=== PATIENT | female | born 1935 | race Caucasian/White ===

== ENCOUNTER 2017-08-18 18:32 | Inpatient (IN) | payer MEDICAID, OTHER ==
[~2017-08-18] VITALS: Ht 134.6 cm; Wt 56.7 kg
--- NOTE | 2017-08-18 18:41 | NUR ---
JUAN FROM HOME ON 5150 FOR DTS: MEDICAL CLEARANCE FOR GPS PLACEMENT
--- NOTE | 2017-08-18 18:41 | NUR ---
DR KEYES AT BEDSIDE FOR EVAL
[2017-08-18 18:52] LABS: BASOPHILS # (AUTO) 0.1 /CMM (0.0-0.2); BASOPHILS % (AUTO) 1.2 % (0.0-2.0); EOSINOPHILS # (AUTO) 0.1 /CMM (0.0-0.7); EOSINOPHILS % (AUTO) 0.9 % (0.0-6.0); HEMATOCRIT 43 % (33-45); HEMOGLOBIN 14.1 g/dL (11.5-14.8); LYMPHOCYTES # (AUTO) 1.3 /CMM (0.8-4.8); LYMPHOCYTES % (AUTO) 11.5 % (20.0-44.0); MEAN CORPUSCULAR HEMOGLOBIN 30 PG (26.0-33.0); MEAN CORPUSCULAR HGB CONC 33 g/dl (31.0-36.0); MEAN CORPUSCULAR VOLUME 92 fL (82-100); MONOCYTES # (AUTO) 0.8 /CMM (0.1-1.30); MONOCYTES % (AUTO) 7.2 % (2.0-12.0); NEUTROPHILS # (AUTO) 9.3 /CMM (1.8-8.9); NEUTROPHILS % (AUTO) 79.2 % (43.0-81.0); PLATELET COUNT (AUTO) 247 /CMM (150-450); RDW COEFFICIENT OF VARIATION 13.5 (11.5-15.0); RED BLOOD CELL COUNT(AUTO) 4.63 MIL/uL (4.0-5.2); WHITE BLOOD COUNT (AUTO) 11.6 K/uL (4.3-11.0)
[2017-08-18 19:04] LABS: CALCIUM, SERUM 9.1 mg/dL (8.5-10.1); CARBON DIOXIDE 32 mmol/L (21-32); CHLORIDE 103 mmol/L (98-107); CREATININE 0.8 mg/dL (0.6-1.3); GLUCOSE 96 mg/dL (74-106); POTASSIUM 3.6 mmol/L (3.5-5.1); SODIUM SERUM 138 mmol/L (136-145); UREA NITROGEN, BLOOD 18 mg/dL (7-18)
[2017-08-18 19:06] LABS: ALCOHOL, BLOOD < 3 mg/dL (0-0)
[2017-08-18 19:14] LABS: TROPONIN I < 0.017 ng/mL (0.00-0.056)
--- NOTE | 2017-08-18 19:49 | NUR ---
URINE SAMPLE COLLECTED SENT TO LAB
--- NOTE | 2017-08-18 19:59 | NUR ---
GPS 218
[2017-08-18 20:00] LABS: APPEARANCE,URINE Clear (CLEAR); BILIRUBIN,URINE Negative (NEGATIVE); BLOOD, URINE Trace-lysed Ery/uL (NEGATIVE); COLOR,URINE Yellow (YELLOW); KETONES,URINE Trace (NEGATIVE); LEUKOCYTE ESTERASE ,URINE Trace (NEGATIVE); NITRITE, URINE Positive (NEGATIVE); PH,URINE 6.5 (5.0-8.0); PROTEIN,URINE Negative (NEGATIVE); UGLUCOSE Negative (NEGATIVE)
--- NOTE | 2017-08-18 20:07 | NUR ---
REPORT GIVEN TO HECTOR ECHOLS GPS GRAVELY DISABLED. TRANSFER VIA STRETCHER.
[2017-08-18 20:17] LABS: BACTERIA,URINE 2+ /HPF (None Seen); SQUAMOUS EPITHELIAL CELL,UR Few /HPF (None Seen)
[2017-08-18 21:00] VITALS: BP 137/92
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
[2017-08-18] MEDS ORDERED: TEMAZEPAM 7.5 MG CAPSULE PO PRN (21:30)
[2017-08-18] MEDS ORDERED: MAGNESIUM HYDROXIDE 30 ML UDC PO PRN (21:30)
[2017-08-18] MEDS ORDERED: MAG HYDROX/AL HYDROX/SIMETH 30 ML UDC PO PRN (21:30)
[2017-08-18] MEDS ORDERED: GABA-534 PO (23:35)
[2017-08-18] MEDS ORDERED: LEVO88TA5 PO (23:35)
[2017-08-18] MEDS ORDERED: DIAZ5TAB4 PO (23:35)
[2017-08-18] MEDS ORDERED: RISP0.5T20 PO (23:35)
[2017-08-18] MEDS ORDERED: LOVA40TA2 PO (23:35)
[2017-08-18] MEDS ORDERED: OXYC-128 PO (23:35)
[2017-08-18] MEDS ORDERED: CITA20TA19 PO (23:35)
[2017-08-18] MEDS ORDERED: CARB-93 PO (23:35)
[2017-08-18] MEDS ORDERED: TRAM50TA2 PO (23:35)
[2017-08-19 06:41] LABS: CREATININE 0.7 mg/dL (0.6-1.3)
[2017-08-19 06:49] LABS: CHOLESTEROL 154 mg/dL (<200); HDL CHOLESTEROL 42 mg/dL (40-60); LDL 101 mg/dL (0-99); TRIGLYCERIDES 77 mg/dL (30-150)
[2017-08-19 08:13] VITALS: BP 109/52
[2017-08-19] MEDS: ACETAMINOPHEN 325 MG TABLET PO PRN (11:07)
--- NOTE | 2017-08-19 11:09 | NUR ---
RN NOTE:PATIENT C/O PAIN MEDICATED WITH TYLENOL 650MG .
[2017-08-19] MEDS ORDERED: Medication Not On Formulary EA (Lovastatin 1 TAB) PO SCH (11:30)
[2017-08-19] MEDS: LEVOTHYROXINE SODIUM 88 MCG TABLET PO SCH (11:30)
[2017-08-19] MEDS ORDERED: TRAMADOL HCL 50 MG TABLET PO PRN (11:30)
--- NOTE | 2017-08-19 11:59 | NUR ---
UR review: JANICE faxed initial clinicals (face sheet, 5860 hold, medication list, and medical H&P) to Dean from [facility] ( FAX# [phone]). Informed him that psych H&P is not available yet and will send it and an updated medical list when it becomes available. JANICE will follow up. Addendum: 08/19/17 at 1300 by MEMO CAMACHO Per Dean's request, clinical was faxed to [phone]
[2017-08-19] MEDS: GABAPENTIN 300 MG CAPSULE PO SCH ×2 (12:30→17:21)
[2017-08-19] MEDS ORDERED: oxyCODONE/APAP (5/325 MG) 1 UDTAB TABLET PO PRN (13:00)
[2017-08-19 16:14] VITALS: BP 114/59
[2017-08-19] MEDS: CITALOPRAM HYDROBROMIDE 20 MG TABLET PO SCH (17:20)
[2017-08-19] MEDS: QUETIAPINE FUMARATE 25 MG TABLET PO SCH (17:20)
[2017-08-19] MEDS: CARBIDOPA/LEVODOPA 25/100 MG 1 UDTAB PO SCH (17:21)
[2017-08-19 20:00] VITALS: BP 106/43
[2017-08-19 20:14] VITALS: BP 106/43
[2017-08-19] MEDS: ATORVASTATIN 10 MG TABLET PO SCH (21:27)
[2017-08-20 08:00] VITALS: BP 108/59
[2017-08-20] MEDS: CARBIDOPA/LEVODOPA 25/100 MG 1 UDTAB PO SCH ×2 (09:12→16:36)
[2017-08-20] MEDS: GABAPENTIN 300 MG CAPSULE PO SCH ×3 (09:12→16:36)
[2017-08-20] MEDS: CITALOPRAM HYDROBROMIDE 20 MG TABLET PO SCH (09:12)
[2017-08-20] MEDS: LEVOTHYROXINE SODIUM 88 MCG TABLET PO SCH (09:12)
[2017-08-20] MEDS: QUETIAPINE FUMARATE 25 MG TABLET PO SCH ×2 (09:13→16:36)
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
--- NOTE | 2017-08-20 13:20 | NUR ---
Initial Discharge Note: Patient lives at home with her daughter [address] [place] [address] [place] [id number] . SW spoke to patient's daughter Christen Lau ([phone]) who confirmed that patient was living with her, however pts daughter stated that she can longer care for her and would like patient to be placed in a facility. open hearth worker will help form a safe and proper discharge.
[2017-08-20 16:00] VITALS: BP 99/59
--- NOTE | 2017-08-20 16:09 | NUR ---
UR update: JANICE faxed updated clinicals to Dean from [place] ( /fax:[phone]). paste up worker will follow-up
--- NOTE | 2017-08-20 16:12 | NUR ---
SW spoke to patient's daughter Rosa Vines ([phone]) who stated that she is looking for placement for patient in [facility] closer to her. Rosa stated that her sister Christen Lau can no longer take care of her and she cannot take her of her either. SW informed her that she would follow-up regarding placement.
--- NOTE | 2017-08-20 16:15 | NUR ---
JANICE spoke to Dean from [place] ( /fax:[phone]) who stated that if family can take patient back home they will be able to offer home health services and IOP services for the patient. forest nursery worker informed Dean that family is stating that they cannot take her of her anymore and are looking for placement. forest nursery worker will follow-up.
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
--- NOTE | 2017-08-20 18:26 | NUR ---
RN NOTES PT SITTING UP ON THE BED, POOR APPETITE , ENCOURAGED PO INTAKE , NO BM YET , WILL ENDORSE TO DRAFTER AUTOMOTIVE DESIGN LAYOUT NURSE FOR CONTINUITY OF CARE .
[2017-08-20 19:59] VITALS: BP 106/51
[2017-08-20 20:00] VITALS: BP 105/51
[2017-08-20] MEDS: ATORVASTATIN 10 MG TABLET PO SCH (21:12)
[2017-08-21] MEDS: QUETIAPINE FUMARATE 25 MG TABLET PO SCH ×2 (08:25→17:19)
[2017-08-21] MEDS: GABAPENTIN 300 MG CAPSULE PO SCH ×3 (08:25→17:19)
[2017-08-21] MEDS: CARBIDOPA/LEVODOPA 25/100 MG 1 UDTAB PO SCH ×2 (08:25→17:19)
[2017-08-21] MEDS: CITALOPRAM HYDROBROMIDE 20 MG TABLET PO SCH (08:25)
[2017-08-21] MEDS: LEVOTHYROXINE SODIUM 88 MCG TABLET PO SCH (08:25)
[2017-08-21 08:28] VITALS: BP 98/55
[2017-08-21 16:00] VITALS: BP 102/54
--- NOTE | 2017-08-21 16:19 | NUR ---
UR update: JANICE faxed updated clinicals to Dean from [place] ( /fax:[phone]). home mission worker will follow-up
[2017-08-21 20:00] VITALS: BP 107/54
[2017-08-21] MEDS: ATORVASTATIN 10 MG TABLET PO SCH (21:02)
[2017-08-22 08:00] VITALS: BP 99/59
[2017-08-22] MEDS: GABAPENTIN 300 MG CAPSULE PO SCH ×3 (08:56→17:41)
[2017-08-22] MEDS: CARBIDOPA/LEVODOPA 25/100 MG 1 UDTAB PO SCH ×2 (08:56→17:41)
[2017-08-22] MEDS: LEVOTHYROXINE SODIUM 88 MCG TABLET PO SCH (08:57)
[2017-08-22] MEDS: CITALOPRAM HYDROBROMIDE 20 MG TABLET PO SCH (08:57)
[2017-08-22] MEDS: clonazePAM 0.5 MG TABLET PO PRN (08:59)
[2017-08-22] MEDS: QUETIAPINE FUMARATE 25 MG TABLET PO SCH ×2 (09:00→17:42)
[2017-08-22 16:09] VITALS: BP 108/55
[2017-08-22 20:00] VITALS: BP 104/60
[2017-08-22] MEDS: ATORVASTATIN 10 MG TABLET PO SCH (21:34)
--- NOTE | 2017-08-23 00:10 | NUR ---
Pt has been withdrawn, confused, blunted, unkempt, impassive, & evasive but compliant with care w/o any promptings.
[2017-08-23 08:00] VITALS: BP 113/51
[2017-08-23] MEDS: GABAPENTIN 300 MG CAPSULE PO SCH ×3 (10:47→16:31)
[2017-08-23] MEDS: CARBIDOPA/LEVODOPA 25/100 MG 1 UDTAB PO SCH ×2 (10:48→16:31)
[2017-08-23] MEDS: CITALOPRAM HYDROBROMIDE 20 MG TABLET PO SCH (10:48)
[2017-08-23] MEDS: LEVOTHYROXINE SODIUM 88 MCG TABLET PO SCH (10:48)
[2017-08-23] MEDS: QUETIAPINE FUMARATE 25 MG TABLET PO SCH ×2 (10:48→16:31)
[2017-08-23 16:00] VITALS: BP 102/52
[2017-08-23 20:19] VITALS: BP 98/48
[2017-08-23] MEDS: ATORVASTATIN 10 MG TABLET PO SCH (21:14)
--- NOTE | 2017-08-23 23:52 | NUR ---
RN NOTES PATIENT REFUSING TO HAVE PICTURES OF WOUNDS/SKIN ISSUES TAKEN. EXPLAINED TO THE PATIENT THAT PICTURES ARE TO BE TAKEN OF A WEEKLY BASIS TO ADEQUATELY TRACK THE PROGRESSION OF WOUND HEALING. PATIENT STILL STRONGLY REFUSES. WILL CONTINUE TO MONITOR AND TRY AGAIN AT A LATER TIME
[2017-08-24] MEDS: clonazePAM 0.5 MG TABLET PO PRN (04:38)
[2017-08-24 07:57] VITALS: BP 100/60
[2017-08-24] MEDS ORDERED: Z GUARD REMEDY 2 OZ OINT TP PRN (08:30)
[2017-08-24] MEDS: CITALOPRAM HYDROBROMIDE 20 MG TABLET PO SCH (09:14)
[2017-08-24] MEDS: GABAPENTIN 300 MG CAPSULE PO SCH ×3 (09:14→17:23)
[2017-08-24] MEDS: CARBIDOPA/LEVODOPA 25/100 MG 1 UDTAB PO SCH ×2 (09:14→17:23)
[2017-08-24] MEDS: LEVOTHYROXINE SODIUM 88 MCG TABLET PO SCH (09:14)
[2017-08-24] MEDS: QUETIAPINE FUMARATE 25 MG TABLET PO SCH ×2 (09:30→17:23)
--- NOTE | 2017-08-24 15:02 | NUR ---
UR update: JANICE faxed updated clinicals to Dean from [place] ( /fax:[phone]). progress worker will follow-up
--- NOTE | 2017-08-24 15:03 | NUR ---
SW spoke to patient's daughter Rosa Vines ([phone]) regarding placement. SW informed patient's daughter that there is a chance that patient's insurance will not authorize a Alf Facility and that there needs to be an alternate discharge option such as a Board & Care, otherwise the family would be responsible for picking-up the patient when she is ready for discharge. Patient's daughter Rosa was agreeable and stated that she would talk to her sister Christen Lau ([phone]) regarding the situation. tray service worker informed her that she was available if needed.
--- NOTE | 2017-08-24 15:08 | NUR ---
tree and shrub worker received a call from patient's daughter Christen Lau ([phone]), who was unhappy and stated that patient cannot return home and needs placement. Patient's daughter Christen stated that she had to leave her apartment and cannot take care of the patient. tree and shrub worker will follow-up.
--- NOTE | 2017-08-24 15:10 | NUR ---
UR update: JANICE faxed PT Evaluation to Jessica from [place] ( /fax:[phone]) who stated that she would forward it to the medical group. furniture lumber production worker will follow-up.
--- NOTE | 2017-08-24 15:11 | NUR ---
UR update: JANICE spoke to Dean from [place] ( /fax:[phone]) about placement and the PT evaluation faxed to Jessica. Per Dean, patient has been authorized for placement and he was going to email a list of contracted facilities. drying can worker will follow-up.
[2017-08-24 15:47] VITALS: BP 118/53
--- NOTE | 2017-08-24 18:30 | NUR ---
GPS RN NOTES PATIENT A/O X2/3, WITH CONFUSION, MED COMPLIANT, V/S STABLE, NO ACUTE DISTRESS, PATIENT POOR EATER, ASSIST TURN AND REPOSITION Q2 HR, APPLIED Z-GUARD, NEEDS ATTENDED AND ANTICIPATED, OFFERED FLUIDS TOLERATED, CALL SARAVIA NEAR TO REACH, SAFETY PRECAUTION MAINTAINED ALL THE TIME.
--- NOTE | 2017-08-24 19:31 | NUR ---
GPS RN NOTES PT IS IN BED, VERBALLY THREATENING TO HIT US. SPEECH IS GARBLED. BREATHING EVENLY AND UNLABORED ON ROOM AIR, NO SIGNS OF SOB OR DISTRESS. TAKOTNA. WILL CONTINUE TO MONITOR PT.
[2017-08-24 19:39] VITALS: BP 96/84
[2017-08-24] MEDS: ATORVASTATIN 10 MG TABLET PO SCH (21:17)
[2017-08-25 08:00] VITALS: BP 100/50
[2017-08-25] MEDS: QUETIAPINE FUMARATE 25 MG TABLET PO SCH ×2 (09:59→18:24)
[2017-08-25] MEDS: CARBIDOPA/LEVODOPA 25/100 MG 1 UDTAB PO SCH ×2 (09:59→18:24)
[2017-08-25] MEDS: LEVOTHYROXINE SODIUM 88 MCG TABLET PO SCH (09:59)
[2017-08-25] MEDS: CITALOPRAM HYDROBROMIDE 20 MG TABLET PO SCH (09:59)
[2017-08-25] MEDS: GABAPENTIN 300 MG CAPSULE PO SCH ×3 (09:59→18:24)
[2017-08-25] MEDS: ACETAMINOPHEN 325 MG TABLET PO PRN (14:20)
--- NOTE | 2017-08-25 15:39 | NUR ---
UR update: JANICE faxed updated clinicals to Dean from [place] ( /fax:[phone]). fancy needleworker will follow-up
--- NOTE | 2017-08-25 15:40 | NUR ---
UR update: manager leadership development Dean from [place] ( /fax:[phone]) requested three days of nursing notes as they may have a facility willing to accept the patient. JANICE faxed nursing notes to Dean (fax:[phone]). rigging worker will follow-up.
[2017-08-25 16:00] VITALS: BP 103/50
--- NOTE | 2017-08-25 19:53 | NUR ---
GPS/RN NOTE: PATIENT LYING IN BED, AWAKE, ALERT, ORIENTED X2, HARD OF HEARING, NO HEARING AID NOTED. RESPONDS WHEN ENGAGED. NO ACUTE DISTRESS NOTED.
[2017-08-25 20:11] VITALS: BP 118/77
[2017-08-25] MEDS: ATORVASTATIN 10 MG TABLET PO SCH (21:26)
[2017-08-26 08:00] VITALS: BP 100/55
[2017-08-26] MEDS: GABAPENTIN 300 MG CAPSULE PO SCH ×5 (08:13→18:04)
[2017-08-26] MEDS: QUETIAPINE FUMARATE 25 MG TABLET PO SCH ×5 (08:13→18:04)
[2017-08-26] MEDS: CARBIDOPA/LEVODOPA 25/100 MG 1 UDTAB PO SCH ×3 (08:13→18:04)
[2017-08-26] MEDS: LEVOTHYROXINE SODIUM 88 MCG TABLET PO SCH (08:13)
[2017-08-26] MEDS: CITALOPRAM HYDROBROMIDE 20 MG TABLET PO SCH (08:13)
--- NOTE | 2017-08-26 09:32 | NUR ---
gps rn notes administered Percocet 5/325 mg po prn for acute lower back pain 07/09, per patient request, v/s taken bp -100/55, p-80, continued monitoring.
[2017-08-26 16:00] VITALS: BP 110/69
--- NOTE | 2017-08-26 18:12 | NUR ---
GPS RN NOTES/ PATIENT A/O X1, CONFUSED, DELUSIONAL, DISORGANIZED THOUGHTS, REFUSED 1300, AND 1700 SCHEDULED MEDICATION, OFFERED X3 BUT PATIENT STILL REFUSED, DR CAPELLAN AWARE OF. PATIENT ALSO REFUSED DINNER. OFFERED FLUIDS TOLERATED, NEEDS ATTENDED AND ANTICIPATED, SAFETY PRECAUTION MAINTAINED ALL THE TIME.
[2017-08-26 20:21] VITALS: BP 107/54
[2017-08-26] MEDS: ATORVASTATIN 10 MG TABLET PO SCH ×2 (21:33→22:00)
--- NOTE | 2017-08-26 23:00 | NUR ---
GPS RN NOTES PATIENT REFUSED ATORVASTATIN, EXPLAINED RISK AND BENEFITS OF MEDICATION. OFFERED MED. 3 X. PATIENT STILL REFUSED.
--- NOTE | 2017-08-27 | NUR ---
GPS RN NOTES PATIENT STILL AWAKE. OFFERED PATIENT SLEEP MEDICATION BUT PATIENT DECLINED.
[2017-08-27 08:00] VITALS: BP 148/80
[2017-08-27] MEDS: CITALOPRAM HYDROBROMIDE 20 MG TABLET PO SCH (08:36)
[2017-08-27] MEDS: CARBIDOPA/LEVODOPA 25/100 MG 1 UDTAB PO SCH ×2 (08:36→17:00)
[2017-08-27] MEDS: LEVOTHYROXINE SODIUM 88 MCG TABLET PO SCH (08:36)
[2017-08-27] MEDS: GABAPENTIN 300 MG CAPSULE PO SCH ×3 (08:36→17:00)
[2017-08-27] MEDS: QUETIAPINE FUMARATE 25 MG TABLET PO SCH ×3 (08:36→17:00)
--- NOTE | 2017-08-27 09:14 | NUR ---
SW attempted to contact patient's daughters Christen Lau ([phone]) and Rosa Vines ([phone]) to inform them that patient may possibly be discharged tomorrow to [facility] [place] [address] ([phone]). However, neither were available social services counselor left a voicemail with direct contact information. livestock farmworker will follow-up.
--- NOTE | 2017-08-27 09:24 | NUR ---
UR update: JANICE faxed updated clinicals to Dean from [place] ( /fax:[phone]). bench worker will follow-up
--- NOTE | 2017-08-27 09:34 | NUR ---
SW spoke to patient's daughters Christen Lau ([phone]) and informed her that patient will be discharged today or tomorrow to [place] [address] ([phone]). Patient's daughter Christen was agreeable with the discharge plan. mixed livestock farm worker will follow-up.
--- NOTE | 2017-08-27 15:20 | NUR ---
UR update: JANICE faxed updated clinicals [08/27] to Dean from [place] ( /fax:[phone]). sheep farm worker will follow-up
[2017-08-27 16:00] VITALS: BP 131/68
--- NOTE | 2017-08-27 17:22 | NUR ---
GPS RN: PATIENT REFUSED 1700 MEDS. RN APPROACHED THREE TIMES, CALMLY REORIENTED THE PATIENT AND EXPLAINED THE PURPOSE AND THE IMPORTANCE OF MEDICATIONS. PATIENT GOT AGITATED, "I TOLD YOU I AM NOT TAKING MEDICATIONS!" AND PUSHED THE MEDICATION CUP AWAY, DROPPING THE PILLS ON THE FLOOR.
[2017-08-27 20:00] VITALS: BP_SYST 125; BP_SYST 127; BP_DIAS 71
[2017-08-27] MEDS: ATORVASTATIN 10 MG TABLET PO SCH (21:48)
[2017-08-28] MEDS: LEVOTHYROXINE SODIUM 88 MCG TABLET PO SCH (07:30)
[2017-08-28 08:00] VITALS: BP 101/58
[2017-08-28] MEDS: QUETIAPINE FUMARATE 25 MG TABLET PO SCH ×2 (09:00→16:17)
[2017-08-28] MEDS: CARBIDOPA/LEVODOPA 25/100 MG 1 UDTAB PO SCH ×2 (09:00→16:17)
[2017-08-28] MEDS: CITALOPRAM HYDROBROMIDE 20 MG TABLET PO SCH (09:00)
[2017-08-28] MEDS: GABAPENTIN 300 MG CAPSULE PO SCH ×3 (09:00→16:17)
--- NOTE | 2017-08-28 15:21 | NUR ---
DR. VILLALPANDO GAVE AN ORDER D/C HOLD AD/C TO [facility] AND TO CONTINUE SAME MEDS. PT. WITHOUT DISTRESS, DENIES SUICIDAL AND HOMICIDAL. TO FOLLOW UP WITH PSYCH AND MEDICAL ORDERS.
--- NOTE | 2017-08-28 15:40 | NUR ---
DR. LEI MADE AWARE OF THE DISCHARGE TO [facility] AND SAID OK FOR DISCHARGE AND TO CONTINUE SAME MEDS.
[2017-08-28 16:00] VITALS: BP 129/74
--- NOTE | 2017-08-28 16:03 | NUR ---
Discharge Note: Patient will be discharged to [facility] [address] [place] [address] ([phone]). Via [facility]. Patient's daughters Christen Lau ([phone]) and Rosa Vines ([phone]) have been informed. Patient's daughters are agreeable with the discharge plan. Patient's mood and affect are appropriate. Patient denies suicidal and homicidal ideations. Patient will follow-up with Dr. Stevenson ([phone]) at the facility on 09/17/17 at 10:00am, in which she will discuss her marijuana use and her use of Benzodiazepines. Facilitated info to IDT team who are in agreement with discharge arrangement. The multidisciplinary exitcare form was done, printed, signed, and given to the patient.
--- NOTE | 2017-08-28 16:23 | NUR ---
PT. IS COOPERATIVE IN CARE, COMPLIANT ON DUE MEDS AT THIS TIME. NO DISTRESS AND NO AGITATION NOTED. WILL CONTINUE TO MONITOR FOR SAFETY.
--- NOTE | 2017-08-28 16:51 | NUR ---
CALLED THE FACILITY AT [phone] AND SPOKE TO MELCHOR FOR THE REPORT. SKIN TAKEN, BELONGINGS READY AND DISCHARGE PAPERS READY. Addendum: 08/28/17 at 1717 by DERRICK WILSON RN PICTURES TAKEN FOR THE SKIN ISSUES.
--- NOTE | 2017-08-28 17:15 | NUR ---
PT. LEFT THE UNIT VIA AMBULANCE AND TRANSPORTED VIA A GURNEY. LEFT THE UNIT WITHOUT DISTRESS AND ON STABLE CONDITION WITH BELONGINGS. V/S TAKEN: BP 113/65, CT 101, OXYGEN SAT 95% AND RR 18.
== END 2017-08-28 17:15 | DRG 885 ==
LOC: ER 18:34 → GPS 20:39
PROVIDERS: ADMIT Psychiatry & Neurology Psychiatry; ATTEND Internal Medicine
DX: F33.3 Major depressive disorder, recurrent, severe with psychotic symptoms (principal); F03.90 Unspecified dementia, unspecified severity, without behavioral disturbance, psychotic disturbance, mood disturbance, and anxiety; R45.851 Suicidal ideations; G20 Parkinson's disease; E03.9 Hypothyroidism, unspecified; E78.5 Hyperlipidemia, unspecified; G89.29 Other chronic pain; Z73.6 Limitation of activities due to disability
CPT/HCPCS: 36415; 80048-TC; 80061-TC; 80305; 81000-TC; 82565-TC; 84443-TC; 84484-TC; 85025-TC; 87081-TC; 87086-TC; 97110-TC; 97530-TC; A4606; G0480; Z7610